=== PATIENT | male | born 1950 | race Caucasian/White ===

== ENCOUNTER 2019-08-15 21:16 | Emergency (ER) | payer OTHER, MEDICARE ==
[2019-08-15] MEDS ORDERED: Adacel Vial IM ONE ×2 (21:48→21:50)
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
[2019-08-16] VITALS: BP 145/96; PULSE 84
[2019-08-16 02:06] VITALS: O2SAT 99
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
== END 2019-08-16 00:10 | disposition home or self-care (01) ==
LOC: ED 21:16
DX: S91.302A Unspecified open wound, left foot, initial encounter (principal); W34.09XA Accidental discharge from other specified firearms, initial encounter; Y93.9 Activity, unspecified; Y92.9 Unspecified place or not applicable; E11.9 Type 2 diabetes mellitus without complications; Z79.4 Long term (current) use of insulin; Z79.899 Other long term (current) drug therapy; I10 Essential (primary) hypertension; M79.672 Pain in left foot; F43.10 Post-traumatic stress disorder, unspecified
CPT/HCPCS: 73630; 90471; 90715; 99284

== ENCOUNTER 2019-09-07 09:20 | Emergency (ER) | payer MEDICARE, OTHER ==
[2019-09-07] MEDS ORDERED: BENADRYL 50 MG/ML IV ONE (09:58)
[2019-09-07] MEDS ORDERED: PROTONIX 40 MG IV IV ONE ×2 (09:58→10:27)
[2019-09-07] MEDS ORDERED: Sodium Chloride 0.9% 1000 ML 1,000 ML IV STA ×2 (09:58→11:43)
[2019-09-07] MEDS ORDERED: Hydromorphone 1 mg/ml Ampule IV ONE ×2 (09:58→11:39)
[2019-09-07] MEDS ORDERED: Zofran 4 MG/2 ML VIAL IV ONE (10:02)
[2019-09-07] MEDS ORDERED: Zofran 4 MG/2 ML VIAL ONE (10:27)
[2019-09-07] MEDS ORDERED: BENADRYL 50 MG/ML ONE (10:27)
[2019-09-07] MEDS ORDERED: Sodium Chloride 0.9% 1000 ML 1,000 ML ONE ×3 (10:28→13:13)
[2019-09-07] MEDS ORDERED: Hydromorphone 1 mg/ml Ampule ONE ×2 (10:28→11:48)
[2019-09-07 10:34] LABS: Lactic Acid 2.6 (0.4-2.0)
[2019-09-07 10:36] LABS: VBG BASE EXCESS 2.8 (-2.0-2.0); VBG CARBOXYHEMOGLOBIN 1.7 % T HGB (0.0-6.9); VBG HCO3- 24.5 meq/L (22-28); VBG HEMOGLOBIN 17.9; VBG O2 SATURATION 44.7 (95-100); VBG pH 7.52 (7.32-7.42)
[2019-09-07 10:37] LABS: VBG POTASSIUM 6.3 (3.5-5.1)
[2019-09-07 10:54] LABS: Absolute Neutrophil Ct (ANC) 15.42 (1.4-6.9); BASOPHIL % 0.2 % (0.0-0.4); Basophil (Absolute #) 0.03 (0-0.4); Eosinophil % 0.5 % (0.00-5.0); Eosinophil (Absolute #) 0.08 (0-0.5); Hematocrit 48.7 % (42-50); Hemoglobin 17.3 gm/dl (12.5-18.0); Lymphocyte (Absolute #) 1.12 (1.0-4.6); Lymphocytes % 6.4 % (24.0-44.0); Mean Cell Volume 87.9 fl (78-100); Mean Corpuscular Hemoglobin 31.2 pg (26-32); Mean Corpuscular Hgb Concent. 35.5 g/dl (32-36); Mean Platelet Volume 9.9 fl (6-9.5); Monocyte (Absolute #) 0.98 (0.0-1.3); Monocytes % 5.6 % (0.0-12.0); Neutrophil % 87.3 % (36.0-66.0); Platelet Count 231 K/mm3 (150-450); Red Blood Count 5.54 M/mm3 (4.1-5.6); Red Cell Distribution Width 13.7 % (11.5-14.0); White Blood Count 17.6 K/mm3 (4.0-10.5)
--- NOTE | 2019-09-07 10:54 | ERPHSYRPT ---
- History of Present Illness Time Seen by Provider: 09/07/19 10:05 Historian: patient Exam Limitations: no limitations Patient Subjective Stated Complaint: pt here for vomiting for the last 3 hours 4 -5 times, chills, pt co pain to right side of abd, loose x5 this morning, no fever Triage Nursing Assessment: pt alert, walked in ,resp easy ,skin w/d/p. abd soft but tender to right side Physician History: ppatient is a 68-year-old white male presents with a complaint of vomiting which started about 4 AM. He has had some diarrhea he has had no fever sweats but does have chills. Pain is generalized and severe. Somewhat crampy in nature. Surgical history includes a previous exploratory laparotomy gallbladder surgery x2 and an appendix. He is on chronic pain meds for chronic pain and has been out for nearly 2 weeks. Timing/Duration: today, hour(s) (7) Activities at Onset: sleep Quality: cramping Abdominal Pain Onset Location: generalized abdomen Severity of Pain-Max: severe Severity of Pain-Current: severe Modifying Factors: Improves With: nothing Associated Symptoms: diarrhea, fever/chills, nausea, vomiting Previous symptoms: no prior history Allergies/Adverse Reactions: No Known Drug Allergies Allergy (Unverified 01/18/14 00:52) Home Medications: Quinapril HCl/Mag Carb [Accupril 20MG Tablet] 20 mg PO DAILY 01/18/14 [History] Glipizide [Glipizide ER] 2.5 mg PO DAILY 08/15/19 [History] Metformin HCl 500 mg [Glucophage 500 MG] 500 mg PO BID 08/15/19 [History] Sertraline HCl 100 mg PO DAILY 08/15/19 [History] Hx Tetanus, Diphtheria Vaccination/Date Given: Yes Hx Influenza Vaccination/Date Given: No Hx Pneumococcal Vaccination/Date Given: No Immunizations Up to Date: Yes - Review of Systems Constitutional: No Fever, No Chills Eyes: No Symptoms Ears, Nose, & Throat: No Symptoms Respiratory: No Cough, No Dyspnea Cardiac: No Chest Pain, No Edema, No Syncope Abdominal/Gastrointestinal: Abdominal Pain, Nausea, Vomiting, Diarrhea Genitourinary Symptoms: No Dysuria Musculoskeletal: No Back Pain, No Neck Pain Skin: No Rash Neurological: No Dizziness, No Focal Weakness, No Sensory Changes Psychological: No Symptoms Endocrine: No Symptoms All Other Systems: Reviewed and Negative - Past Medical History Pertinent Past Medical History: Yes Neurological History: No Pertinent History ENT History: No Pertinent History Cardiac History: Hypertension Respiratory History: No Pertinent History Endocrine Medical History: No Pertinent History Musculoskeletal History: Degenerative Disk Disease GI Medical History: Hernia History: No Pertinent History Psycho-Social History: Other Male Reproductive Disorders: No Pertinent History Other Medical History: PTSD, melanoma - Past Surgical History Past Surgical History: Yes Neuro Surgical History: No Pertinent History Cardiac: No Pertinent History Respiratory: No Pertinent History Gastrointestinal: Appendectomy, Cholecystectomy, Exploratory Laparoscopy Genitourinary: No Pertinent History Musculoskeletal: Orthopedic Surgery Male Surgical History: No Pertinent History Other Surgical History: right arm, right leg, neck surgery - Social History Smoking Status: Never smoker Exposure to second hand smoke: No Drug Use: none Patient Lives Alone: No - Nursing Vital Signs Nursing Vital Signs: Initial Vital Signs Temperature 97.6 F 09/07/19 09:26 Pulse Rate 75 09/07/19 09:26 Respiratory Rate 16 09/07/19 09:26 Blood Pressure 191/89 09/07/19 09:26 O2 Sat by Pulse Oximetry 99 09/07/19 09:26 Pain Scale Pain Intensity 4 - Physical Exam General Appearance: no apparent distress, alert Eye Exam: PERRL/EOMI, eyes nml inspection Ears, Nose, Throat Exam: normal ENT inspection, pharynx normal, moist mucous membranes Neck Exam: normal inspection, non-tender, supple, full range of motion Respiratory Exam: normal breath sounds, lungs clear, No respiratory distress Cardiovascular Exam: regular rate/rhythm, normal heart sounds Gastrointestinal/Abdomen Exam: tenderness, No normal bowel sounds (decreased), No mass, No pulsatile mass, No rebound, No hepatomegaly Back Exam: normal inspection, normal range of motion, No CVA tenderness, No vertebral tenderness Extremity Exam: normal inspection, normal range of motion, pelvis stable Neurologic Exam: alert, oriented x 3, cooperative, normal mood/affect, nml cerebellar function, sensation nml, No motor deficits Skin Exam: normal color, warm, dry SpO2: 99 - Course Nursing assessment & vital signs reviewed: Yes EKG Interpreted by Me: RATE, Sinus Rhythm, NORMAL AXIS, Right [place] Deviation, Non-specific ST Changes Ordered Tests: Active Orders 24 hr Category Date Time Status Clean Catch Urine Specimen STAT Care 09/07/19 11:00 Active EKG-ER Only STAT Care 09/07/19 09:58 Active EKG-ER Only STAT Care 09/07/19 11:53 Active IV Insertion STAT Care 09/07/19 09:58 Active ABDOMEN AND PELVIS W CONTRAST [CT] Stat Exams 09/07/19 09:59 Taken CHEST 1 VIEW (PORTABLE) Stat Exams 09/07/19 09:59 Taken AMYLASE Stat Lab 09/07/19 10:40 Completed BLOOD CULTURE Stat Lab 09/07/19 10:40 Received CBC W DIFF Stat Lab 09/07/19 10:40 Completed CMP Stat Lab 09/07/19 10:40 Completed LIPASE Stat Lab 09/07/19 10:40 Completed Lactic Acid Stat Lab 09/07/19 09:58 Completed Lactic Acid Stat Lab 09/07/19 12:34 Ordered PROTIME WITH INR Stat Lab 09/07/19 10:40 Completed Potassium Routine Lab 09/07/19 13:25 Received TROPONIN Q3H Lab 09/07/19 10:40 Completed TROPONIN Q3H Lab 09/07/19 13:25 Received TROPONIN Q3H Lab 09/07/19 16:00 Ordered TROPONIN Q3H Lab 09/07/19 19:00 Ordered TROPONIN Q3H Lab 09/07/19 22:00 Ordered UA W/RFX UR CULTURE Stat Lab 09/07/19 10:51 Completed Urine Triage Profile Stat Lab 09/07/19 11:10 Completed VBG [VENOUS BLOOD GAS] Stat Lab 09/07/19 10:30 Completed Medication Summary Generic Name Dose Route Start Last Admin Trade Name Freq PRN Reason Stop Dose Admin Sodium Chloride 1,000 mls @ 100 mls/hr 09/07/19 12:00 09/07/19 13:14 Sodium Chloride 0.9% 1000 Ml IV 10/07/19 11:59 100 mls/hr .Q10H MADELIN Administration Discontinued Medications Generic Name Dose Route Start Last Admin Trade Name Freq PRN Reason Stop Dose Admin Dextrose 50 ml 09/07/19 11:36 09/07/19 12:07 D50w 50 Ml Abboject IV 09/07/19 11:37 50 ml STAT ONE Administration Dextrose Confirm 09/07/19 11:48 D50w 50 Ml Abboject Administered 09/07/19 11:49 Dose 50 ml IV .STK-MED ONE Diphenhydramine HCl 25 mg 09/07/19 09:58 09/07/19 10:30 Benadryl 50 Mg/Ml IV 09/07/19 09:59 25 mg STAT ONE Administration Diphenhydramine HCl Confirm 09/07/19 10:27 Benadryl 50 Mg/Ml Administered 09/07/19 10:28 Dose 50 mg .ROUTE .STK-MED ONE Hydromorphone HCl 1 mg 09/07/19 09:58 09/07/19 10:30 Hydromorphone 1 Mg/Ml Ampule IV 09/07/19 09:59 1 mg STAT ONE Administration Hydromorphone HCl Confirm 09/07/19 10:28 Hydromorphone 1 Mg/Ml Ampule Administered 09/07/19 10:29 Dose 1 mg .ROUTE .STK-MED ONE Hydromorphone HCl 1 mg 09/07/19 11:39 09/07/19 12:07 Hydromorphone 1 Mg/Ml Ampule IV 09/07/19 11:40 1 mg STAT ONE Administration Hydromorphone HCl Confirm 09/07/19 11:48 Hydromorphone 1 Mg/Ml Ampule Administered 09/07/19 11:49 Dose 1 mg .ROUTE .STK-MED ONE Sodium Chloride 1,000 mls @ 999 mls/hr 09/07/19 09:58 09/07/19 11:41 Sodium Chloride 0.9% 1000 Ml IV 09/07/19 10:58 Infused .Q1H1M STA Infusion Sodium Chloride Confirm 09/07/19 10:28 Sodium Chloride 0.9% 1000 Ml Administered 09/07/19 10:29 Dose 1,000 mls @ ud .ROUTE .STK-MED ONE Sodium Chloride 1,000 mls @ 999 mls/hr 09/07/19 11:43 09/07/19 13:13 Sodium Chloride 0.9% 1000 Ml IV 09/07/19 12:43 Infused .Q1H1M STA Infusion Sodium Chloride Confirm 09/07/19 11:48 Sodium Chloride 0.9% 1000 Ml Administered 09/07/19 11:49 Dose 1,000 mls @ ud .ROUTE .STK-MED ONE Insulin Human Regular 10 unit 09/07/19 11:37 09/07/19 12:08 Novolin R IV 09/07/19 11:38 10 unit STAT ONE Administration Insulin Human Regular Confirm 09/07/19 11:47 Novolin R Administered 09/07/19 11:48 Dose 10 unit .ROUTE .STK-MED ONE Ondansetron HCl 4 mg 09/07/19 10:02 09/07/19 10:30 Zofran 4 Mg/2 Ml Vial IV 09/07/19 10:03 4 mg STAT ONE Administration Ondansetron HCl Confirm 09/07/19 10:27 Zofran 4 Mg/2 Ml Vial Administered 09/07/19 10:28 Dose 4 mg .ROUTE .STK-MED ONE Pantoprazole Sodium 40 mg 09/07/19 09:58 09/07/19 10:29 Protonix 40 Mg Iv IV 09/07/19 09:59 40 mg STAT ONE Administration Pantoprazole Sodium Confirm 09/07/19 10:27 Protonix 40 Mg Iv Administered 09/07/19 10:28 Dose 40 mg IV .STK-MED ONE Lab/Rad Data: Laboratory Result Diagrams 09/07/19 10:40 09/07/19 10:40 Laboratory Results 09/07/19 09/07/19 09/07/19 Range/Units 11:10 10:51 10:40 WBC (4.0-10.5) K/mm3 RBC (4.1-5.6) M/mm3 Hgb (12.5-18.0) gm/dl Hct (42-50) % MCV (78-100) fl MCH (26-32) pg MCHC (32-36) g/dl RDW (11.5-14.0) % Plt Count (150-450) K/mm3 MPV (6-9.5) fl Gran % (36.0-66.0) % Eos # (Auto) (0-0.5) Absolute Lymphs (auto) (1.0-4.6) Absolute Monos (auto) (0.0-1.3) Lymphocytes % (24.0-44.0) % Monocytes % (0.0-12.0) % Eosinophils % (0.00-5.0) % Basophils % (0.0-0.4) % Absolute Granulocytes (1.4-6.9) Basophils # (0-0.4) PT (8.83-12.87) SECONDS INR (0.8-3.0) pO2/FiO2 Ratio % VBG pH (7.32-7.42) VBG pCO2 at Pat Temp (42-55) mm/Hg VBG pO2 at Pat Temp (25-40) mm/Hg VBG HCO3 (22-28) meq/L VBG O2 Sat (Mary) (95-100) VBG Base Excess (-2.0-2.0) VBG Hemoglobin VBG Carboxyhemoglobin (0.0-6.9) % T HGB POC Potassium (3.5-5.1) Sodium (137-145) mmol/L Potassium (3.5-5.1) mmol/L Chloride (98-107) mmol/L Carbon Dioxide (22-30) mmol/L Anion Gap (5-15) MEQ/L BUN (9-20) mg/dL Creatinine (0.66-1.25) mg/dL Estimated GFR ML/MIN Glucose (74-106) mg/dL Lactic Acid (0.4-2.0) Calcium (8.4-10.2) mg/dL Total Bilirubin (0.2-1.3) mg/dL AST (17-59) U/L ALT (0-50) U/L Alkaline Phosphatase (38-126) U/L Troponin I < 0.012 (0.000-0.034) ng/mL Serum Total Protein (6.3-8.2) g/dL Albumin (3.5-5.0) g/dL Amylase (30-110) U/L Lipase (23-300) U/L Urine Color YELLOW (YELLOW) Urine Appearance CLEAR (CLEAR) Urine pH 6.0 (5-6) Ur Specific Tate 1.023 (1.005-1.025) Urine Protein 100 (Negative) Urine Ketones NEGATIVE (NEGATIVE) Urine Blood NEGATIVE (0-5) Camron/ul Urine Nitrite NEGATIVE (NEGATIVE) Urine Bilirubin NEGATIVE (NEGATIVE) Urine Urobilinogen NEGATIVE (0-1) mg/dL Ur Leukocyte Esterase NEGATIVE (NEGATIVE) Urine WBC (Auto) 0-2 (0-5) /HPF Urine RBC (Auto) NONE (0-2) /HPF U Hyaline Cast (Auto) 0-2 (0-2) /LPF U Epithel Cells (Auto) NONE (FEW) /HPF Urine Bacteria (Auto) RARE (NEGATIVE) /HPF Urine Mucus (Auto) SLIGHT (NEGATIVE) /HPF Urine Culture Reflexed NO (NO) Urine Glucose NEGATIVE (NEGATIVE) mg/dL Urine Opiates Level NEGATIVE (NEGATIVE) Ur Methadone NEGATIVE (NEGATIVE) Urine Barbiturates NEGATIVE (NEGATIVE) Ur Phencyclidine (PCP) NEGATIVE (NEGATIVE) Urine Amphetamine NEGATIVE (NEGATIVE) U Benzodiazepine Level NEGATIVE (NEGATIVE) Urine Cocaine NEGATIVE (NEGATIVE) Urine Marijuana (THC) NEGATIVE (NEGATIVE) 09/07/19 09/07/19 09/07/19 Range/Units 10:40 10:40 10:40 WBC 17.6 H (4.0-10.5) K/mm3 RBC 5.54 (4.1-5.6) M/mm3 Hgb 17.3 (12.5-18.0) gm/dl Hct 48.7 (42-50) % MCV 87.9 (78-100) fl MCH 31.2 (26-32) pg MCHC 35.5 (32-36) g/dl RDW 13.7 (11.5-14.0) % Plt Count 231 (150-450) K/mm3 MPV 9.9 H (6-9.5) fl Gran % 87.3 H (36.0-66.0) % Eos # (Auto) 0.08 (0-0.5) Absolute Lymphs (auto) 1.12 (1.0-4.6) Absolute Monos (auto) 0.98 (0.0-1.3) Lymphocytes % 6.4 L (24.0-44.0) % Monocytes % 5.6 (0.0-12.0) % Eosinophils % 0.5 (0.00-5.0) % Basophils % 0.2 (0.0-0.4) % Absolute Granulocytes 15.42 H (1.4-6.9) Basophils # 0.03 (0-0.4) PT 11.4 (8.83-12.87) SECONDS INR 1.01 (0.8-3.0) pO2/FiO2 Ratio % VBG pH (7.32-7.42) VBG pCO2 at Pat Temp (42-55) mm/Hg VBG pO2 at Pat Temp (25-40) mm/Hg VBG HCO3 (22-28) meq/L VBG O2 Sat (Mary) (95-100) VBG Base Excess (-2.0-2.0) VBG Hemoglobin VBG Carboxyhemoglobin (0.0-6.9) % T HGB POC Potassium (3.5-5.1) Sodium 142 (137-145) mmol/L Potassium 6.5 H* (3.5-5.1) mmol/L Chloride 104 (98-107) mmol/L Carbon Dioxide 26 (22-30) mmol/L Anion Gap 18.5 H (5-15) MEQ/L BUN 26 H (9-20) mg/dL Creatinine 1.11 (0.66-1.25) mg/dL Estimated GFR > 60.0 ML/MIN Glucose 198 H (74-106) mg/dL Lactic Acid (0.4-2.0) Calcium 10.8 H (8.4-10.2) mg/dL Total Bilirubin 1.40 H (0.2-1.3) mg/dL AST 33 (17-59) U/L ALT 32 (0-50) U/L Alkaline Phosphatase 93 (38-126) U/L Troponin I (0.000-0.034) ng/mL Serum Total Protein 9.5 H (6.3-8.2) g/dL Albumin 5.2 H (3.5-5.0) g/dL Amylase 267 H (30-110) U/L Lipase 995 H (23-300) U/L Urine Color (YELLOW) Urine Appearance (CLEAR) Urine pH (5-6) Ur Specific Tate (1.005-1.025) Urine Protein (Negative) Urine Ketones (NEGATIVE) Urine Blood (0-5) Camron/ul Urine Nitrite (NEGATIVE) Urine Bilirubin (NEGATIVE) Urine Urobilinogen (0-1) mg/dL Ur Leukocyte Esterase (NEGATIVE) Urine WBC (Auto) (0-5) /HPF Urine RBC (Auto) (0-2) /HPF U Hyaline Cast (Auto) (0-2) /LPF U Epithel Cells (Auto) (FEW) /HPF Urine Bacteria (Auto) (NEGATIVE) /HPF Urine Mucus (Auto) (NEGATIVE) /HPF Urine Culture Reflexed (NO) Urine Glucose (NEGATIVE) mg/dL Urine Opiates Level (NEGATIVE) Ur Methadone (NEGATIVE) Urine Barbiturates (NEGATIVE) Ur Phencyclidine (PCP) (NEGATIVE) Urine Amphetamine (NEGATIVE) U Benzodiazepine Level (NEGATIVE) Urine Cocaine (NEGATIVE) Urine Marijuana (THC) (NEGATIVE) 09/07/19 09/07/19 Range/Units 10:30 09:58 WBC (4.0-10.5) K/mm3 RBC (4.1-5.6) M/mm3 Hgb (12.5-18.0) gm/dl Hct (42-50) % MCV (78-100) fl MCH (26-32) pg MCHC (32-36) g/dl RDW (11.5-14.0) % Plt Count (150-450) K/mm3 MPV (6-9.5) fl Gran % (36.0-66.0) % Eos # (Auto) (0-0.5) Absolute Lymphs (auto) (1.0-4.6) Absolute Monos (auto) (0.0-1.3) Lymphocytes % (24.0-44.0) % Monocytes % (0.0-12.0) % Eosinophils % (0.00-5.0) % Basophils % (0.0-0.4) % Absolute Granulocytes (1.4-6.9) Basophils # (0-0.4) PT (8.83-12.87) SECONDS INR (0.8-3.0) pO2/FiO2 Ratio 21.0 % VBG pH 7.52 H (7.32-7.42) VBG pCO2 at Pat Temp 30 L (42-55) mm/Hg VBG pO2 at Pat Temp 18 L (25-40) mm/Hg VBG HCO3 24.5 (22-28) meq/L VBG O2 Sat (Mary) 44.7 L (95-100) VBG Base Excess 2.8 H (-2.0-2.0) VBG Hemoglobin 17.9 VBG Carboxyhemoglobin 1.7 (0.0-6.9) % T HGB POC Potassium 6.3 H* (3.5-5.1) Sodium (137-145) mmol/L Potassium (3.5-5.1) mmol/L Chloride (98-107) mmol/L Carbon Dioxide (22-30) mmol/L Anion Gap (5-15) MEQ/L BUN (9-20) mg/dL Creatinine (0.66-1.25) mg/dL Estimated GFR ML/MIN Glucose (74-106) mg/dL Lactic Acid 2.6 H (0.4-2.0) Calcium (8.4-10.2) mg/dL Total Bilirubin (0.2-1.3) mg/dL AST (17-59) U/L ALT (0-50) U/L Alkaline Phosphatase (38-126) U/L Troponin I (0.000-0.034) ng/mL Serum Total Protein (6.3-8.2) g/dL Albumin (3.5-5.0) g/dL Amylase (30-110) U/L Lipase (23-300) U/L Urine Color (YELLOW) Urine Appearance (CLEAR) Urine pH (5-6) Ur Specific Tate (1.005-1.025) Urine Protein (Negative) Urine Ketones (NEGATIVE) Urine Blood (0-5) Camron/ul Urine Nitrite (NEGATIVE) Urine Bilirubin (NEGATIVE) Urine Urobilinogen (0-1) mg/dL Ur Leukocyte Esterase (NEGATIVE) Urine WBC (Auto) (0-5) /HPF Urine RBC (Auto) (0-2) /HPF U Hyaline Cast (Auto) (0-2) /LPF U Epithel Cells (Auto) (FEW) /HPF Urine Bacteria (Auto) (NEGATIVE) /HPF Urine Mucus (Auto) (NEGATIVE) /HPF Urine Culture Reflexed (NO) Urine Glucose (NEGATIVE) mg/dL Urine Opiates Level (NEGATIVE) Ur Methadone (NEGATIVE) Urine Barbiturates (NEGATIVE) Ur Phencyclidine (PCP) (NEGATIVE) Urine Amphetamine (NEGATIVE) U Benzodiazepine Level (NEGATIVE) Urine Cocaine (NEGATIVE) Urine Marijuana (THC) (NEGATIVE) - Departure Referrals: HOSPITAL,'S [Primary Care Provider] -
[2019-09-07 11:02] LABS: INR 1.01 (0.8-3.0); PROTIME 11.4 SECONDS (8.83-12.87)
[2019-09-07 11:10] LABS: ALBUMIN 5.2 g/dL (3.5-5.0); ALKALINE PHOSPHATASE 93 U/L (38-126); AMYLASE 267 U/L (30-110); ANION GAP 18.5 MEQ/L (5-15); BLOOD UREA NITROGEN 26 mg/dL (9-20); CHLORIDE 104 mmol/L (98-107); Calcium 10.8 mg/dL (8.4-10.2); Carbon Dioxide 26 mmol/L (22-30); Creatinine 1 1.11 mg/dL (0.66-1.25); Glucose 198 mg/dL (74-106); LIPASE 995 U/L (23-300); SGOT/AST 33 U/L (17-59); SGPT/ALT 32 U/L (0-50); SODIUM 142 mmol/L (137-145); Total Protein 9.5 g/dL (6.3-8.2)
[2019-09-07 11:18] LABS: Appearance CLEAR (CLEAR); Bacteria RARE /HPF (NEGATIVE); Bilirubin NEGATIVE (NEGATIVE); Blood NEGATIVE Ery/ul (0-5); Glucose NEGATIVE (NEGATIVE); Hyaline Casts 0-2 /LPF (0-2); Ketones NEGATIVE (NEGATIVE); Leukocyte Esterase NEGATIVE (NEGATIVE); Mucus SLIGHT /HPF (NEGATIVE); Nitrite NEGATIVE (NEGATIVE); Protein,Urine Dip 100 (Negative); Specific Gravity 1.023 (1.005-1.025); Urobilinogen NEGATIVE mg/dL (0-1); WBC 0-2 /HPF (0-5)
[2019-09-07 11:21] LABS: Potassium 6.5 mmol/L (3.5-5.1)
[2019-09-07] MEDS ORDERED: D50W 50 ml Abboject IV ONE ×2 (11:36→11:48)
[2019-09-07] MEDS ORDERED: NovoLIN R IV ONE (11:37)
[2019-09-07 11:43] LABS: Amphetamine,Urine NEGATIVE (NEGATIVE); Barbiturate,Urine NEGATIVE (NEGATIVE); Benzodiazepine,Urine NEGATIVE (NEGATIVE); Cocaine,Urine NEGATIVE (NEGATIVE); Methadone,Urine NEGATIVE (NEGATIVE); Opiate,Urine NEGATIVE (NEGATIVE); PCP,Urine NEGATIVE (NEGATIVE); THC,Urine NEGATIVE (NEGATIVE)
[2019-09-07] MEDS ORDERED: NovoLIN R ONE (11:47)
[2019-09-07] MEDS ORDERED: Sodium Chloride 0.9% 1000 ML 1,000 ML IV SCH (12:00)
[2019-09-07 13:18] VITALS: BP 139/71
[2019-09-07 13:55] LABS: Lactic Acid 2.2 (0.4-2.0)
[2019-09-07 14:00] LABS: Potassium 4.5 mmol/L (3.5-5.1)
[2019-09-07 14:01] LABS: TROPONIN < 0.012 ng/mL (0.000-0.034)
[2019-09-07 15:02] VITALS: PULSE 85; O2SAT 95
--- NOTE | 2019-09-07 20:37 | XRAY ---
Indication: Abdomen pain and vomiting. Multiple contiguous axial images obtained through the abdomen and pelvis using 80 cc of Isovue-370 contrast only. Comparison: None Lung bases demonstrates mild bilateral dependent atelectasis. No infiltrate or effusion. Heart is not enlarged. 8 mm metallic density interposed between the base of the heart and left lobe of the liver. Noncontrasted stomach and bowel loops appear nonobstructed. Mild fluid distended stomach and small bowel loops throughout with some fluid leveling, ileus versus gastroenteritis. Patient reports appendectomy and cholecystectomy. No free fluid/air. Spleen is enlarged measuring 13.7 cm in greatest axial dimension. Right lobe of the liver demonstrates peripheral calcifications either postinfectious versus granulomatous. A few other hepatic/splenic calcified granulomas. A few right renal cysts, largest in the upper pole measuring 1.7 cm. Remaining liver, pancreas, spleen, adrenal glands, kidneys, ureters, and bladder appear unremarkable. Minimal aortic calcifications. No AAA or pathologic retroperitoneal lymphadenopathy. Osseous structures intact with minimal degenerative changes throughout the spine. 8 mm metallic density overlies the anterior L3 segments. Additional metallic densities in the soft tissues of the right flank region. Impression: 1. Fluid distended stomach and small bowel loops with fluid leveling, ileus versus gastroenteritis. 2. Splenomegaly, right renal cysts, metallic shrapnel, and evidence for old granulomatous disease. 3. Remaining CT abdomen/pelvis with contrast exam is negative. Comment: Preliminary interpretation was made by C. No critical discrepancy. CTDI 10.60
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
== END 2019-09-07 15:48 ==
LOC: ED 09:20
DX: R11.2 Nausea with vomiting, unspecified (principal); R10.84 Generalized abdominal pain
CPT/HCPCS: 36415; 71045; 74177; 80053; 80307; 81001; 82150; 82805; 83605; 83690; 84132; 84484; 85025; 85610; 87040; 93005; 96360; 96361; 96374; 96375; 96376; 99285; J1170; J1200; J2405; A9270-GY

== ENCOUNTER 2024-12-24 15:17 | Emergency (ER) | payer MEDICARE, OTHER ==
[2024-12-24] MEDS ORDERED: NORCO 5/325 MG ONE ×2 (15:48→17:16)
[2024-12-24] MEDS ORDERED: Adacel Vial IM ONE (15:48)
--- NOTE | 2024-12-24 15:48 | ERPHSYRPT ---
- History of Present Illness Time Seen by Provider: 12/24/24 15:26 Source: patient, family Exam Limitations: no limitations Patient Subjective Stated Complaint: cut finger with grinding wheel Triage Nursing Assessment: small laceration 5th digit left hand, 4 digit deep laceration 2x.5 cm, able to move fingers. alert and oriented x3, patient walked in gait steady. Physician History: 74-year-old male right-handed dominant presented in the ER with laceration to the left fourth and fifth and digits with grinding wheel prior to arrival. Patient reports painful movements at the left fourth digit with some restriction range of motion. Complaining of moderate intensity sharp shooting pain with movements at proximal interphalangeal joint of fourth digit. Denies any distal numbness or tingling sensations. Allergies/Adverse Reactions: No Known Drug Allergies Allergy (Unverified 01/18/14 00:52) Home Medications: Quinapril HCl/Mag Carb [Accupril 20MG Tablet] 20 mg PO DAILY 01/18/14 [History] Metformin HCl 500 mg [Glucophage 500 MG] 500 mg PO BID 08/15/19 [History] Sertraline HCl 100 mg PO DAILY 08/15/19 [History] glipiZIDE [Glipizide ER] 2.5 mg PO DAILY 08/15/19 [History] Empagliflozin [Jardiance] 10 mg PO DAILY 12/24/24 [History] Hx Tetanus, Diphtheria Vaccination/Date Given: (unknown) Hx Influenza Vaccination/Date Given: No Hx Pneumococcal Vaccination/Date Given: No Travel Risk - International Travel Have you traveled outside of the country in past 3 weeks: No - Emerging Infectious Disease Are you exhibiting symptoms associated with any current EIDs: No - Review of Systems Constitutional: No Symptoms Ears, Nose, & Throat: No Symptoms Respiratory: No Symptoms Cardiac: No Symptoms Musculoskeletal: Injury Skin: Skin Lesions Neurological: No Symptoms Hematologic/Lymphatic: No Symptoms - Past Medical History Pertinent Past Medical History: Yes Neurological History: No Pertinent History ENT History: No Pertinent History Cardiac History: Hypertension Respiratory History: No Pertinent History Endocrine Medical History: No Pertinent History, Diabetes Type II Musculoskeletal History: Degenerative Disk Disease GI Medical History: Hernia History: No Pertinent History Psycho-Social History: Other Male Reproductive Disorders: No Pertinent History Other Medical History: PTSD, melanoma - Past Surgical History Past Surgical History: Yes Neuro Surgical History: No Pertinent History Cardiac: No Pertinent History Respiratory: No Pertinent History Gastrointestinal: Appendectomy, Cholecystectomy, Exploratory Laparoscopy Genitourinary: No Pertinent History Musculoskeletal: Orthopedic Surgery Male Surgical History: No Pertinent History Other Surgical History: right arm, right leg, neck surgery - Social History Smoking Status: Never smoker Drug Use: none - Social Determinants of Health Will the patient participate in the screening: Yes Do you worry about a steady place to live?: Yes Do you have any problems with any of the following?: No known problems In the past 12 months,have you had to go without utilities?: No Transportation Issues: No Has anyone in your support network made you feel unsafe?: No Have you or anyone in your house had to go w/o enough food: No - Nursing Vital Signs Nursing Vital Signs: Initial Vital Signs Pulse Rate 75 12/24/24 15:17 Respiratory Rate 16 12/24/24 15:17 Blood Pressure 139/70 12/24/24 15:17 O2 Sat by Pulse Oximetry 97 12/24/24 15:17 Pain Scale Pain Intensity 5 - Physical Exam General Appearance: no apparent distress Neck Exam: normal inspection, full range of motion Cardiovascular/Respiratory Exam: normal breath sounds, regular rate/rhythm Wrist Exam: normal inspection, non-tender, no evidence of injury, normal ROM Hand Exam: laceration (2 cm laceration left fourth digit just distal to proximal interphalangeal joint on the dorsal medial aspect. Distal neurovascular intact.) Neuro/Tendon Exam: No normal tendon functions Mental Status Exam: alert, oriented x 3, cooperative Skin Exam: normal color SpO2 Interpretation: normal SpO2: 97 O2 Delivery: Room Air Procedures - Laceration/Wound Repair Left Finger Time of Procedure: 15:47 Wound Location: Left, hand Wound Length (cm): 2 Wound's Depth, Shape: into muscle Wound Explored: contaminated Irrigated: Yes Hibiclens Prep: Yes Anesthesia: 1% Lidocaine Volume Anesthetic (ccs): 4 Wound Repaired With: sutures Suture Size/Type: 4-0, ethilon Number of Sutures: 5 Layer Closure?: No Sterile Dressing Applied?: Yes Splint Applied?: Yes Type of Splint Applied: Premade aluminum Sling Applied?: No Ordered Tests: Active Orders 24 hr Category Date Time Status FINGER(S) Stat Exams 12/24/24 15:43 Completed FINGER(S) Stat Exams 12/24/24 16:49 Completed Medication Summary Discontinued Medications Generic Name Dose Route Start Last Admin Trade Name Mick PRN Reason Stop Dose Admin Hydrocodone Bitart/Acetaminophen 1 tab 12/24/24 15:45 12/24/24 15:49 Hydrocodone/Apap 5/325 1 Tab Tablet PO 12/24/24 15:46 1 tab STAT ONE Administration Hydrocodone Bitart/Acetaminophen Confirm 12/24/24 15:48 Hydrocodone/Apap 5/325 1 Tab Tablet Administered 12/24/24 15:49 Dose 1 tab .ROUTE .STK-MED ONE Hydrocodone Bitart/Acetaminophen 2 tab 12/24/24 17:09 12/24/24 17:22 Hydrocodone/Apap 5/325 1 Tab Tablet PO 12/24/24 17:10 2 tab SENT HOME W/ PATIENT ONE Administration Hydrocodone Bitart/Acetaminophen Confirm 12/24/24 17:16 Hydrocodone/Apap 5/325 1 Tab Tablet Administered 12/24/24 17:17 Dose 2 tab .ROUTE .STK-MED ONE Cephalexin HCl 500 mg 12/24/24 16:48 12/24/24 16:55 Cephalexin Mh500 Mg Capsule PO 12/24/24 16:49 500 mg STAT ONE Administration Cephalexin HCl Confirm 12/24/24 16:51 Cephalexin Mh500 Mg Capsule Administered 12/24/24 16:52 Dose 500 mg .ROUTE .STK-MED ONE Diphtheria/Tetanus/Acell Pertussis 0.5 ml 12/24/24 15:46 12/24/24 15:50 Tdap --Diph,Pertuss(Acell),Tet Vac/Pf 0.5 Ml Vial IM 12/24/24 15:47 0.5 ml .ONCE ONE Administration Diphtheria/Tetanus/Acell Pertussis Confirm 12/24/24 15:48 Tdap --Diph,Pertuss(Acell),Tet Vac/Pf 0.5 Ml Vial Administered 12/24/24 15:49 Dose 0.5 ml IM .STK-MED ONE - Progress Progress: improved, pain not gone completely Progress Note: 12/24/24 16:58 74-year-old is evaluated in the ER for left fourth finger laceration while working with a machine at home. Has mild restricted range of motion at proximal interphalangeal joint where the laceration is. Questionable concern for tendon laceration. Distal neurovascular although is intact. X-rays negative for fracture dislocation reviewed by me followed by official read which also showed questionable foreign body. Thoroughly cleaned and vivian-rayed which did not show any foreign body reviewed by me, official final read is pending. Discussed with patient in detail about risk of tendon injury and transfer to facility with hand surgery, he does not want to go now, laceration is repaired. Placed him on antibiotics. Tetanus is updated. Placed in aluminum finger splint and outpatient orthopedic follow-up recommended. I have discussed with orthopedics Dr. Grant and patient would be evaluated tomorrow in the clinic. Discussed signs symptoms of worsening needing return to ER which he seems understanding. Stable for discharge. 12/24/24 17:26 Repeat x-ray official read showed fracture corner of the distal head of proximal phalanx. Patient is placed in a splint and he would follow-up outpatient with orthopedics. Counseled pt/family regarding: diagnosis, need for follow-up, rad results Medical Desision Making - Independent Historian Additional History obtained from: Spouse - Discussion of managment Care discussed with:: specialist (Dr. Grant orthopedic surgeon) Reviewed:: Test results Agreed on:: Treatment plan, need for follow-up Will see patient: In office - Diagnostic Testing Diagnostic test were ordered, analyzed, and reviewed by me: Yes Radiological Interpretation: Interpreted by me, Reviewed by me - Risk of complications The pt has a mod risk of morbidity or mortality based on: Need for prescription drug management, Need for minor surgical intervention in patient with know risk factors - Departure Departure Disposition: Home Clinical Impression: Finger laceration, Finger fracture, left Condition: Stable Critical Care Time: No Referrals: [facility] [Primary Care Provider] - Follow up with PCP 1 day MARICARMEN GRANT MD [ACTIVE STAFF] - Follow up/PCP as directed (Tomorrow for reevaluation) Instructions: Stitches - ED discharge instructions Additional Instructions: Intermittent ice application. Take Tylenol as needed for pain. Keep it elevated. Follow-up with orthopedics for reevaluation tomorrow between 8 and 10 AM. Return to ER for increasing pain swelling redness discharge, difficulty movements, numbness distally. Prescriptions: Cephalexin Mh 500 mg [Keflex 500 mg] 500 mg PO TID #21 cap
[2024-12-24] MEDS: NORCO 5/325 MG PO ONE ×2 (15:49→17:22)
[2024-12-24] MEDS: Adacel Vial IM ONE (15:50)
--- NOTE | 2024-12-24 16:27 | XRAY ---
Indication: Fracture. Foreign body. Comparison: None 3 view left 4th finger demonstrates overlying bandage material. Two punctate radiopacities posterior to PIP joint either external versus soft tissue foreign body. No other bony, articular, or soft tissue abnormalities.
[2024-12-24 16:36] VITALS: RESP 18
[2024-12-24] MEDS ORDERED: KEFLEX 500 MG ONE (16:51)
[2024-12-24] MEDS: KEFLEX 500 MG PO ONE (16:55)
[2024-12-24 17:05] VITALS: O2SAT 97
--- NOTE | 2024-12-24 17:07 | XRAY ---
Indication: Foreign body. Comparison: Taken earlier in the day. 3 view left 4th finger demonstrates removal overlying bandage. There is now visualization tiny comminuted corner fracture head proximal phalanx ulnar aspect with adjacent punctate calcifications versus foreign bodies.
[2024-12-24 17:08] VITALS: BP 120/64; PULSE 68
== END 2024-12-24 17:27 | disposition home or self-care (01) ==
LOC: ED 15:17
DX: S62.615B Displaced fracture of proximal phalanx of left ring finger, initial encounter for open fracture (principal); S61.215A Laceration without foreign body of left ring finger without damage to nail, initial encounter; W29.8XXA Contact with other powered hand tools and household machinery, initial encounter; I10 Essential (primary) hypertension; E11.9 Type 2 diabetes mellitus without complications; Z79.84 Long term (current) use of oral hypoglycemic drugs; Z79.899 Other long term (current) drug therapy; Z59.819 Housing instability, housed unspecified; Z23 Encounter for immunization
CPT/HCPCS: 12001; 73140; 90471; 90715; 99283; 99284; A9270-GY

== ENCOUNTER 2024-12-26 05:57 | Day surgery (SDC) | payer MEDICARE, OTHER ==
[2024-12-26] MEDS ORDERED: XYLOCAINE 1% HCL 20 ML MDV ONE (06:30)
[2024-12-26] MEDS: Lactated Ringers 1,000 ML IV SCH (06:52)
[2024-12-26] MEDS: CEFAZOLIN 2 GM/100 ML NaCl 2 GM/100 ML IVPB IV SCH (06:53)
[2024-12-26] MEDS ORDERED: Versed 2 MG/2 ML Injection ONE (07:45)
[2024-12-26] MEDS ORDERED: Xylocaine-Mpf 2% 5 Ml Vial ONE ×2 (07:45→07:49)
[2024-12-26] MEDS ORDERED: propofoL IV ONE (07:45)
[2024-12-26] MEDS ORDERED: dexAMETHasone sodium phosphate ONE (07:45)
[2024-12-26] MEDS ORDERED: SUBLIMAZE 100 MCG/2 ML ONE (07:45)
[2024-12-26] MEDS ORDERED: Marcaine 0.5%/Epinephrine 10 ML ONE (07:46)
[2024-12-26] MEDS ORDERED: DEXMEDETOMIDINE 80 MCG/20ML-NS IV ONE (07:46)
[2024-12-26] MEDS ORDERED: Triple Antibiotic Ointment ONE (09:15)
[2024-12-26 09:48] VITALS: BP 100/71; PULSE 62; RESP 16; TEMP 97.6; O2SAT 94
--- NOTE | 2024-12-29 08:14 | OP ---
SURGERY DATE/TIME: 12/26/2024 [id number] PREOPERATIVE DIAGNOSIS: Laceration, left ring finger. POSTOPERATIVE DIAGNOSIS: Complex laceration left ring finger involving open joint, tendon laceration, bony disruption, and gross contamination. PROCEDURE: Debridement of open wound left finger involving skin, subcutaneous tissue and bone, pulsatile lavage, and repair of the extensor tendon. SURGEON: Sam Lewis MD. INDICATIONS: This patient sustained an injury to his left ring finger this week while working at home with a back grinder on a trailer. He was seen in the emergency room. The laceration was 2.5 cm long on the ulnar and dorsal border of his left ring finger. The emergency room physician stated that he did not see tendon involvement but he did see gross contamination and cleansed out the wound and performed primary closure. The patient was seen in the clinic. Radiographs were evaluated and showed evidence of bony disruption which would confirm that the back grinder injury penetrated through all the soft tissues including tendon and got down to bone at the level of the PIP joint. Therefore, we recommended surgical management. Consent was obtained. DESCRIPTION OF PROCEDURE AND FINDINGS: The patient was seen preoperatively and we confirmed the plan and then took him back to the operating room. He received preoperative antibiotics. He was given a supraclavicular block by anesthesia staff prior to going to the OR. Once in the OR, we removed the sutures from the wound, then performed a sterile prep and drape. To better visualize the structures deep to the incision, we had to extend the current laceration. Laceration geometry was essentially transverse, so we extended the radial end of this in a proximal direction. This allowed us to peel back a proximal flap, at which time we could easily see within the wound. We could visualize the extensor tendon, the full-thickness laceration, and the exposed end of the distal aspect of the proximal phalanx. By flexing the joint, we could peer within the PIP joint. There were several bony fragments in this vicinity which we removed. There was also evidence of visible gross contamination with small fragments of black material presumably rust and metal debris from the trailer. We picked these out manually by hand. Some of the areas had to be lightly debrided and scraped with a knife blade. Soft tissue in the subcutaneous plane that was contaminated was also trimmed out. We then performed pulsatile lavage of the wound and joint with 3000 mL of normal saline solution, utilizing a pulse lavage system. Once this was completed, we closed the capsule with 2-0 Vicryl suture. We then repaired the tendon with a capsular suture technique utilizing 2-0 Vicryl suture. Skin closure was then performed with interrupted 4-0 Prolene suture. We then applied Adaptic with Polysporin, sterile gauze, Kerlix, and a volar splint. The patient tolerated the procedure well.
== END 2024-12-26 10:06 | disposition home or self-care (01) ==
LOC: SDC 05:57
PROVIDERS: ATTEND Orthopaedic Surgery
DX: S61.218A Laceration without foreign body of other finger without damage to nail, initial encounter (principal); E11.9 Type 2 diabetes mellitus without complications
CPT/HCPCS: 11012; 26410; 64450; 82947; 99100; J0690; J1100; J2250; J2704; J3010; A9270-GY